=== PATIENT | female | born 1985 | race Two or more races ===

== ENCOUNTER 2016-06-06 10:11 | Emergency (ER) | payer OTHER ==
[2016-06-06] MEDS ORDERED: IOPAMIDOL 300 (61%) 100 ML VIAL IV ONE (10:12)
[2016-06-06 11:32] LABS: ABSOLUTE NEUTROPHIL COUNT 3.1 K/mm3 (1.8-7.7); BASO % 0.7 % (0.2-1.0); EOS # 0.1 (0.0-0.5); EOS % 1.4 % (0.9-2.9); HEMATOCRIT 40.8 % (37.0-47.0); HEMOGLOBIN 13.7 gm/l (12.0-16.0); IMM NEUT% 0.2 % (0-1); LYMPH # 2.2 (1.0-4.8); MEAN CELL VOLUME 87.7 fl (81.0-99.0); MEAN CORPUSCULAR HEMOGLOBIN 29.5 pg (27.0-31.0); MEAN CORPUSCULAR HGB CONC 33.6 g/dl (33.0-37.0); MEAN PLATELET VOLUME 10.5 fl (7.4-10.4); MONO # 0.4 (0.0-0.8); MONO % 6.3 % (4-12); NEUT % 53.4 % (43-75); PLATELET COUNT 204 K/mm3 (130-400); RED CELL DISTRIBUTION WIDTH 12.2 % (11.5-14.5)
[2016-06-06 11:45] LABS: CALCIUM 9.6 mg/dL (8.6-10.3)
--- NOTE | 2016-06-06 12:13 | CT ---
NECK SOFT TISSUE W/ CON: 06/06/2016 11:08 AM CLINICAL INDICATION: Swelling along the anterior middle neck. Difficulty swallowing. COMPARISON: None. (MR) Sequences Performed: None (CT) Scan Technique: Contiguous axial 3 mm images from the AP window through the orbital meatal line are obtained after the uneventful IV ministration of contrast. Sagittal and coronal reformations are also obtained at this time. Contrast: 80 ml of Isovue-300 contrast administered. FINDINGS: Orbits/Paranasal Sinuses/Skull Base: Normal Nasopharynx: Normal Suprahyoid Neck: Normal Infrahyoid Neck: Normal Thyroid: Normal Thoracic Inlet: Normal Lymph Nodes: No adenopathy Vascular Structures: Normal Other Findings: Osseous structures are intact without lytic or sclerotic lesions. IMPRESSION: Unremarkable examination. No specific cause for the patient's anterior neck swelling. Close clinical and radiographic follow-up are recommended. Report was uploaded to the electronic medical record at approximately 1210 hours on 06/06/2016
== END 2016-06-06 13:16 | disposition home or self-care (01) ==
LOC: ED 10:11
DX: M54.2 Cervicalgia (principal); R13.10 Dysphagia, unspecified; E07.9 Disorder of thyroid, unspecified
CPT/HCPCS: 85025; 80048; 84443; 70491; 99284 ×2; Q9967

== ENCOUNTER 2016-08-15 03:52 | Emergency (ER) | payer OTHER ==
[2016-08-15] MEDS ORDERED: IBUPROFEN 600 MG TABLET ONE (04:10)
== END 2016-08-15 04:23 | disposition home or self-care (01) ==
LOC: ED 03:52
DX: N64.4 Mastodynia (principal)
CPT/HCPCS: 99282 ×2; A9270